=== PATIENT | male | born 1980 | race Caucasian/White ===

== ENCOUNTER → 2018-06-09 14:51 | Outpatient (CLI) | payer OTHER, MEDICAID, SELFPAY ==
[2018-06-09 20:19] LABS: Urine N gonorrhoeae NOT DETECTED
[2018-06-09 20:43] LABS: Urine Chlamydia NOT DETECTED
== END ==
PROVIDERS: PCP Family Medicine; Visit Provider Family Medicine
DX: Z72.51 High risk heterosexual behavior (principal)
CPT/HCPCS: 87491; 87591